=== PATIENT | male | born 1950 | race Two or more races ===

== ENCOUNTER → 2017-02-05 | Day surgery (SDC) | payer BC, MEDICARE ==
[~2017-02-05] MED LIST: FISH OIL300 MG PO; GLUCOSAMINE500 M1 PO; MULTIVITAMINS1 EAC3 PO; VITAMIN B122500 MC1 PO; [UNRECOGNIZED DRUG - REMARK]; [UNRECOGNIZED DRUG - REMARK]
--- NOTE | ~2017-02-05 | OR ---
Unit #: [id number] #: [id number] Patient: ED MANNING [id number] [address] [address] [id number] O MR#: [id number] NAME: ED MANNING ROOM: Date of Procedure: 02/05/2017 Admission Date: 02/05/2017 Surgeon: Demond Leon M.D. : 1950 Attending Physician: Demond Leon M.D. Primary Care Physician: Noy Topete M.D. OPERATIVE REPORT PROCEDURE PERFORMED Colonoscopy with snare polypectomy. INDICATIONS FOR PROCEDURE A 66-year-old gentleman with average risk for colorectal cancer here for screening colonoscopy. MEDICATIONS Monitored anesthesia. POSTOPERATIVE FINDINGS 1. Prep was good. 2. Polyp in sigmoid colon, 5 mm, snared, sent for histopathology. 3. Polyp, 6 to 8 mm in rectum, snared, sent for histopathology. 4. Rest of colon exam to cecum was normal. PLAN 1. Follow up on pathology report. 2. Repeat colonoscopy in 5 years. DESCRIPTION OF PROCEDURE The patient was explained of the procedure, risks, and benefits along with risks and benefits of anesthesia. He was brought to the endoscopy room. Propofol anesthesia was given. Rectal exam was done, which was normal. Colonoscope was lubricated, passed up the rectum, advanced under direct vision all the way to the cecum. Cecum was identified by ileocecal valve and appendiceal orifice. I retroflexed in the rectum, small hemorrhoids seen. Scope was gently pulled out. He tolerated it well. Dictated by... Bhanu Jimenez/saloni TD: 02/14/2017 10:27 JOB #: [id number] Unit #: [id number] #: [id number] Patient: ED MANNING OPERATIVE REPORT Page 1 of 1 X Demond Leon MD PROCEDURE OPERATIVE NOTE
--- NOTE | ~2017-02-05 | OR ---
Unit #: [id number] #: [id number] Patient: ED MANNING [id number] [address] [address] [id number] O MR#: [id number] NAME: ED MANNING ROOM: Date of Procedure: 02/05/2017 Admission Date: 02/05/2017 Surgeon: Demond Leon M.D. : 1950 Attending Physician: Demond Leon M.D. Primary Care Physician: Noy Topete M.D. OPERATIVE REPORT PROCEDURES PERFORMED Colonoscopy with snare polypectomy. INDICATIONS FOR PROCEDURE A 66-year-old with average risk for colorectal cancer. MEDICATIONS Monitored anesthesia. POSTOPERATIVE FINDINGS 1. Polyp, sigmoid colon, 5 mm, snared and sent for histopathology. 2. Polyps, 6 to 8 mm, rectum, snared and sent for histopathology. 3. Rest of the exam to cecum was normal. 4. Good prep. PLAN Follow up on pathology report. Repeat colonoscopy in 5 years. DESCRIPTION OF PROCEDURE The patient was explained of the procedure, risks, and benefits along with risks and benefits of anesthesia. The patient was brought to the endoscopy room. Monitored anesthesia was given. Rectal exam was done, which was normal. Colonoscope was lubricated, passed up the rectum, advanced under direct vision all the way to cecum. Cecum was identified by ileocecal valve and appendiceal orifice. I then started to pull the scope out carefully looking. Two polyps were seen as described. I retroflexed in the rectum, small hemorrhoids seen. Scope was gently pulled out. The patient tolerated it well. No major complications were seen. Dictated by... Bhanu Jimenez/saloni TD: 02/06/2017 22:18 JOB #: [id number] Unit #: [id number] #: [id number] Patient: ED MANNING OPERATIVE REPORT Page 1 of 1 X Demond Leon MD X PROCEDURE OPERATIVE NOTE
== END | disposition home or self-care (01) ==
LOC: COPS 09:15
DX: Z12.11 Encounter for screening for malignant neoplasm of colon (principal); D12.5 Benign neoplasm of sigmoid colon; K62.89 Other specified diseases of anus and rectum; K64.9 Unspecified hemorrhoids; Z79.899 Other long term (current) drug therapy
CPT/HCPCS: 88305; J2250